=== PATIENT | male | born 2000 | race Caucasian/White ===

== ENCOUNTER → 2021-01-20 | Outpatient (CLI) | payer OTHER ==
[~2021-01-20] MED LIST: E-Z-GAS II EFFERVESCENT PACKET (SODIUM BICARB./CITRIC ACID/SIMETHICONE) As Ordered ONE; E-Z-HD 98% w/w 340GM SUSP BTL As Ordered ONE; E-Z-PAQUE 96% w/w SUSP 176GM BTL As Ordered ONE
--- NOTE | 2021-01-21 16:49 | REP ---
INDICATION: DIFFICULTY SWALLOWING. COMPARISON: None. TECHNIQUE: This procedure was performed under the direct supervision of Dr. Pereira. Images were reviewed with Dr. Pereira. Liquid barium and gas producing granules were given in the erect position as well as liquid barium in the prone oblique positions in order to perform a double contrast esophagram examination. 0.8 minutes of fluoro time was utilized for this procedure. FINDINGS: A single view PA chest x-ray is submitted as a biomedical photographer film. The superior mediastinal structures are midline. The heart size is within normal limits. The lungs are clear. The oral and pharyngeal stages of deglutition are unremarkable. Esophageal transport is prompt and efficient and there is no esophagitis, stricture, mucosal ring, or hiatal hernia.There is gastroesophageal reflux demonstrated to above the level of the brad. IMPRESSION: There is gastroesophageal reflux demonstrated to above the level of the brad. Otherwise, unremarkable double-contrast esophagram examination. <Electronically signed by Kevin Tiwari > 01/20/21 [id number] <Electronically signed by Aftab Pereira > 01/21/21 [id number]
== END ==
LOC: M RAD 07:30
PROVIDERS: ATTEND Physician Assistant
DX: R13.10 Dysphagia, unspecified (principal)

== ENCOUNTER → 2021-04-19 | Outpatient (CLI) | payer OTHER ==
--- NOTE | 2021-04-19 14:33 | REP ---
INDICATION: LEG PAIN ? STRESS FX. COMPARISON: Comparison radiographs are left tib fib views from January 06, 2021 and right tib fib radiographs from July 10, 2019.. TECHNIQUE: 22.0 mCi of technetium 99 M MDP is injected and 3 phase imaging of the calves is acquired. FINDINGS: The anterior and posterior blood flow images are normal. Blood pool images show no significant soft tissue asymmetry in blood pool activity in either calf. Delayed scan images demonstrate a linear pattern of focally increased uptake in the the anterolateral cortex of the midshaft of the left tibia consistent with stress periostitis. There is a subtle area of increased uptake in the medial cortex of the right tibial midshaft as well. No established stress fracture. IMPRESSION: Findings consistent with bilateral tibial stress periostitis, left more so than right. No established stress fracture seen. <Electronically signed by Garland Basurto > 04/19/21 [id number]
== END ==
LOC: EDUNIT# 01-25 11:30 → M RAD 10:09
PROVIDERS: ATTEND Physician Assistant
DX: M86.161 Other acute osteomyelitis, right tibia and fibula (principal)

== ENCOUNTER 2021-08-04 19:50 | Emergency (ER) | payer OTHER ==
[~2021-08-04] VITALS: Ht 182.9 cm; Wt 75.0 kg
--- OUTSIDE RECORDS SUMMARY | 2021-08-04 19:55 | CCD ---
Author Author [facility] Organization [facility] Address Unknown Phone Unavailable Care Team Providers Care Manager Clinical Services Name Role Phone UNKNOWN, CLINIC JABIER Unavailable Unavailable JAN QIU Unavailable Unavailable Re-disclosure Warning The records that you are about to access may contain information from federally-assisted alcohol or drug abuse programs. If such information is present, then the following federally mandated warning applies: This information has been disclosed to you from records protected by federal confidentiality rules (42 CFR part 2). The federal rules prohibit you from making any further disclosure of this information unless further disclosure is expressly permitted by the written consent of the person to whom it pertains or as otherwise permitted by 42 CFR part 2. A general authorization for the release of medical or other information is NOT sufficient for this purpose. The Federal rules restrict any use of the information to criminally investigate or prosecute any alcohol or drug abuse patient.The records that you are about to access may contain highly sensitive health information, the redisclosure of which is protected by Article 27-F of the [facility] Public Health law. If you continue you may have access to information: Regarding HIV / AIDS; Provided by facilities licensed or operated by the [facility] Office of Mental Health; or Provided by the [facility] Office for People With Developmental Disabilities. If such information is present, then the following [facility] mandated warning applies: This information has been disclosed to you from confidential records which are protected by state law. State law prohibits you from making any further disclosure of this information without the specific written consent of the person to whom it pertains, or as otherwise permitted by law. Any unauthorized further disclosure in violation of state law may result in a fine or retirement sentence or both. A general authorization for the release of medical or other information is NOT sufficient authorization for further disc losure. Encounters Encounter Providers Location Date Indications Data Source(s ) Outpatient Attender: JAN Stoneultant: JABIER Mederos 08/03/2021 07:32:00 AM EDT - 08/03/2021 08:32:00 AM EDT [facility] Patient discharged. Medications No Information Insurance Providers Payer name Policy type / Coverage type Policy ID Covered constitution party ID Covered constitution party's relationship to tsai Policy Tsai Plan Information [facility] ACTIVE DUTY [id number] SP [id number] [facility] HUMA[employer] - O/P [id number] 18 [id number] Problems, Conditions, and Diagnoses No Information Surgeries/Procedures No Information Results ID Date Data Source [id number] 08/04/2021 08:43:00 [place] [address] PHONE: [phone] FAX: [phone] Name .................. : RA Liu Acct Number.................. : [id number] ROOM. ................. : Number ................... : [id number] Stay type ............. : O/P Discharge Date......... ... : 08/03/21 Admit Date ....... .. : 08/03/21 Admit Phys .................... : UYEN HAYS Date of ....... : 2000 Family Phys ................... : UNKNOWN CO Phone .................. : [phone] Age ................................ : 20 Film# .................. .:[id number] Sex ................................. : M Unsigned transcriptions are preliminary reports and do not represent a medical or legal document RENAL COMPLETE [id number] COMPLETE:08/03/21 08:30 [facility] [address] Reason for Exam: HTN, SOB CHEST DISCOMFORT ULTRASOUND RETROPERITONEAL GENITOURINARY KIDNEYS AND RENAL ARTERY DOPPLER INDICATION: Hypertension, shortness of breath, chest discomfort. Hypertension recent onset 6 months. Controlled with medication now refractory hypertension on medication. Assess for renal artery stenosis. COMPARISON: None. KIDNEYS Right kidney size: 10.9 cm. Parenchyma: Normal parenchymal thickness and echogenicity. Collecting systems: No hydronephrosis. Calculi: No nephrolithiasis. Cysts: None. Masses: None. Left kidney size: 10.8 cm Parenchyma: Normal parenchymal thickness and echogenicity. Collecting systems: No hydronephrosis. Calculi: No nephrolithiasis. Cysts: None. Page 1 of 2 [facility] [address] [place] [address] PHONE: [phone] FAX: [phone] Name .................. : RA Liu Acct Number.................. : [id number] ROOM. ................. : Number ................... : [id number] Stay type ............. : O/P Discharge Date......... ... : 08/03/21 Admit Date ......... : 08/03/21 Admit Phys .................... : UYEN HAYS Date of ....... : 2000 Family Phys ................... : UNKNOWN CO Phone .................. : [phone] Age ................................ : 20 Film# .................. .:[id number] Sex ................................. : M Unsigned transcriptions are preliminary reports and do not represent a medical or legal document RENAL COMPLETE [id number] COMPLETE:08/03/21 08:30 [facility] [address] Reason for Exam: HTN, SOB CHEST DISCOMFORT Masses: None. Doppler: Peak Systolic Velocity 111 Cm/S on the Right and 115 Cm/S on the Left. Renal Aortic Ratio 1.2 on the Right and 1.3 on the Left No Delayed Peak Systolic Upstroke. Uniform Similar Resistive Indices. IMPRESSION: Normal-appearing kidneys. No ultrasound indication of renal artery stenosis. Please note that MR or CT may be more sensitive for certain types of renal artery stenosis particularly fibromuscular dysplasia which is potentially more common etiology for renal artery mediated hypertension in younger patients than atherosclerosis. Electronically Reviewed and Signed By Byron Hooks MD , 08/04/21 08:43, SASHAB Transcribe Initials: FARHAT, Transcribe Date: 08/03/21 08:46, Dictation Date: Copy for: QIU JAN Copy for: [facility] REC Page 2 of 2 Name Value Range Interpretation Code Description Data Missy rce(s) Supporting Document(s) Procedure Social History No Information
[2021-08-04] MEDS ORDERED: ADDE1TAB14 PO (20:04)
--- OUTSIDE RECORDS SUMMARY | 2021-08-04 21:29 | CCD ---
Author Author [facility] Organization [facility] Address Unknown Phone Unavailable Care Team Providers Care Clerical Support Specialist Name Role Phone UNKNOWN, CLINIC JABIER Unavailable [...] is protected by Article 27-F of the [facility] Public Health law. If you continue you may have access to information: Regarding HIV / AIDS; Provided by facilities licensed or operated by the [facility] Office of Mental Health; or Provided by the [facility] Office for People With Developmental Disabilities. If such information is present, then the following [facility] mandated warning applies: This information has been [...] law may result in a fine or correction sentence or both. A general authorization for the release of medical or other information is NOT sufficient authorization for further disc losure. Encounters Encounter Providers Location Date Indications Data Source(s ) Outpatient Attender: JAN Stoneultant: JABIER Mederos 08/03/2021 07:32:00 AM EDT - 08/03/2021 08:32:00 AM EDT [facility] Patient discharged. Medications No Information Insurance Providers Payer name Policy type / Coverage type Policy ID Covered alliance party ID Covered alliance party's relationship to tsai Policy Tsai Plan Information [facility] ACTIVE DUTY [id number] SP [id number] [facility] [employer] - O/P [id number] 18 [id number] Problems, Conditions, and Diagnoses No Information Surgeries/Procedures No Information Results ID Date Data Source [id number] 08/04/2021 08:43:00 [place] [address] PHONE: [phone] FAX: [phone] Name .................. : RA Liu Acct Number.................. : [id number] ROOM. ................. : Number ................... : [id number] Stay type ............. : O/P Discharge Date......... ... : 08/03/21 Admit Date ....... .. : 08/03/21 Admit Phys .................... : UYEN HAYS Date of ....... : 2000 Family Phys ................... : UNKNOWN CO Phone .................. : [phone] Age ................................ : 20 Film# .................. .[id number] Sex ................................. : M Unsigned transcriptions are preliminary reports and do not represent a medical or legal document RENAL COMPLETE [id number] COMPLETE:08/03/21 08:30 [facility] [address] Reason for Exam: HTN, SOB CHEST DISCOMFORT [...] nephrolithiasis. Cysts: None. Page 1 of 2 [facility] [address] [place] [address] PHONE: [phone] FAX: [phone] Name .................. : RA Liu Acct Number.................. : [id number] ROOM. ................. : Number ................... : [id number] Stay type ............. : O/P Discharge Date......... ... : 08/03/21 Admit Date ......... : 08/03/21 Admit Phys .................... : UYEN HAYS Date of ....... : 2000 Family Phys ................... : UNKNOWN CO Phone .................. : [phone] Age ................................ : 20 Film# .................. .[id number] Sex ................................. : M Unsigned transcriptions are preliminary reports and do not represent a medical or legal document RENAL COMPLETE [id number] COMPLETE:08/03/21 08:30 [facility] [address] Reason for Exam: HTN, SOB CHEST DISCOMFORT [...] Date: Copy for: QIU JAN Copy for: [facility] MED REC Page 2 of 2 Name Value Range Interpretation Code Description Data Missy rce(s) Supporting Document(s) Procedure Social History No Information
--- NOTE | 2021-08-04 22:17 | REPVR ---
PROCEDURE INFORMATION: Exam: XR Chest Exam date and time: 08/04/2021 9:41 PM Age: 20 years old Clinical indication: Other: Chest pain TECHNIQUE: Imaging protocol: XR of the chest. Views: 1 view. COMPARISON: XA Esophagram Barium Swallow 01/20/2021 7:41 AM FINDINGS: Lungs: Unremarkable. No consolidation. Pleural spaces: Unremarkable. No pleural effusion. No pneumothorax. Heart/Mediastinum: Unremarkable. No cardiomegaly. Bones/joints: Unremarkable. IMPRESSION: No acute findings. Electronically signed by: Tadeo Becker On 08/04/2021 22:16:47 PM
[2021-08-04 22:43] LABS: BLOOD UREA NITROGEN 11 MG/DL (7-18); CALCIUM LEVEL 9.4 MG/DL (8.5-10.1); CARBON DIOXIDE LEVEL 27 MEQ/L (21-32); CHLORIDE LEVEL 107 MEQ/L (98-107); CREATININE FOR GFR 0.94 MG/DL (0.70-1.30); GLOMERULAR FILTRATION RATE > 60.0 (>60); GLUCOSE, FASTING 94 MG/DL (70-100); POTASSIUM SERUM 3.4 MEQ/L (3.5-5.1); SODIUM LEVEL 140 MEQ/L (136-145)
[2021-08-04] MEDS ORDERED: NAPR-837 PO (23:21)
[2021-08-04 23:22] VITALS: BP 133/69
--- NOTE | 2021-08-05 20:15 | ECGEPIP ---
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 Order Number: [id number] Reading MD: Ruth Ann Guerrero Measurements Intervals [place] Rate: 75 P: 30 ND: 152 QRS: 56 QRSD: 104 T: 35 QT: 372 QTc: 415 Interpretive Statements Normal sinus rhythm No prior Electronically Signed on 08-05-2021 20:15:14 EDT by Ruth Ann Guerrero
== END 2021-08-04 23:26 | disposition home or self-care (01) ==
LOC: M ED 19:50
DX: R07.89 Other chest pain (principal); I10 Essential (primary) hypertension; F90.9 Attention-deficit hyperactivity disorder, unspecified type; Z79.899 Other long term (current) drug therapy

== ENCOUNTER → 2021-08-06 | Outpatient (CLI) | payer OTHER ==
[~2021-08-06] MED LIST changes: +ADDE1TAB14 PO; -E-Z-GAS II EFFERVESCENT PACKET (SODIUM BICARB./CITRIC ACID/SIMETHICONE) As Ordered ONE; -E-Z-HD 98% w/w 340GM SUSP BTL As Ordered ONE; -E-Z-PAQUE 96% w/w SUSP 176GM BTL As Ordered ONE; +NAPR-837 PO
--- NOTE | 2021-08-06 16:26 | ECHO ---
ECHOCARDIOGRAM DATE OF PROCEDURE: 08/06/2021 Age: 20 Gender: Male Height: 72 inches Weight: 166 pounds Body surface area: 1.97 m2 Outpatient. REFERRING PROVIDER: MALAIKA Mccain INDICATION: Hypertension. MEASUREMENTS: 2D Measurements: RV - 4.1 cm LV - 4.5 cm Septum 1.0 cm Posterior wall 1.0 cm Aortic root 3.1 cm LA - 3.4 cm LVEF 70% Doppler Measurements: AV - 1.18 m/s LVOT - 1.1 m/s LVOT diameter 2.0 cm MV-E 102, A 40, E/A ratio 2.6 Early mitral deceleration time 222 msec E prime medial 10.6 A prime medial 8.5 E prime lateral 22 PV - 0.88 m/s Pulmonary artery acceleration time 130 msec PASP - 24 mmHg IVC 1.4 cm COMMENTS: Normal sinus rhythm without intraventricular conduction disturbance. M-mode and 2-dimensional echocardiography was performed with pulse, continuous wave, color flow, and tissue Doppler studies. Normal left ventricular, wall thickness, and hyperkinetic wall motion. Normal left atrial size and Doppler assessment of LV diastolic function and estimated mean left atrial pressure. Normal right heart chamber sizes, wall motion, and estimated pulmonary arterial pressure. Normal IVC size with prompt respiratory collapse against an elevated central venous pressure. Normal aortic dimensions. Normal-appearing and functioning valvular structures. No apparent intracardiac mass or pericardial effusion.
== END ==
LOC: M CARPUL 08:50
PROVIDERS: ATTEND Physician Assistant
DX: I10 Essential (primary) hypertension (principal)